=== PATIENT | female | born 1945 | race Caucasian/White ===

== ENCOUNTER 2018-12-14 07:58 | Outpatient (CLI) | payer OTHER ==
[~2018-12-14 07:58] MED LIST: DETROL LA4 MG PO; EVISTA60 MG PO; PROPRANOLOL HCL60 M1 PO; URIN D.S. TABL1 EACH PO; ZOCOR20 MG PO; ZOLIPDEM PO
== END 2018-12-14 08:09 | disposition home or self-care (01) ==
LOC: NUCLEAR 07:58
DX: E21.3 Hyperparathyroidism, unspecified (principal)
CPT/HCPCS: 78072; A9500

== ENCOUNTER 2019-10-07 08:12 | Outpatient (CLI) | payer OTHER | END 2019-10-07 11:39 | disposition home or self-care (01) | LOC: RX STUDY 08:12 | PROVIDERS: ATTEND Internal Medicine Gastroenterology | DX: K57.92 Diverticulitis of intestine, part unspecified, without perforation or abscess without bleeding (principal) ==